=== PATIENT | male | born 1940 | race Two or more races ===

== ENCOUNTER 2022-07-18 13:04 | Inpatient (IN) | payer OTHER ==
[~2022-07-18] VITALS: Ht 152.4 cm; Wt 72.6 kg
[2022-07-18] MEDS ORDERED: ELIQUIS2.5 MG PO (13:32)
[2022-07-18] MEDS ORDERED: ALLOPURINOL300 MG PO (13:33)
[2022-07-18] MEDS ORDERED: CALCITRIOL0.25 MCG PO (13:33)
[2022-07-18] MEDS ORDERED: SPIRONOLACTONE25 MG PO (13:33)
[2022-07-18] MEDS ORDERED: METOPROLOL SUCC50 MG PO (13:33)
[2022-07-18] MEDS ORDERED: ATORVASTATIN CA20 MG PO (13:34)
[2022-07-18] MEDS ORDERED: LEVOTHYROXINE25 MC1 PO (13:34)
[2022-07-18] MEDS ORDERED: FUROSEMIDE20 MG PO (13:34)
[2022-07-18] MEDS ORDERED: DOXAZOSIN MESYLA4 MG PO (13:35)
[2022-07-18] MEDS ORDERED: HYDROCHLOROTH12.5 MG PO (13:35)
--- NOTE | 2022-07-18 13:36 | NUR ---
PTE REFIERE DOLOR ABDOMINAL ACOMPANADO DE VOMITOS Y DIARREAS DESDE HACE VARIOS DOUGLAS.
--- NOTE | 2022-07-18 18:23 | NUR ---
SE ORIENTA PTE SOBRE TX MEDICO EL CUAL REFIERE ENTENDER.SE LE EXTRAEN MUESTRAS,SE ENTREGA CONTRASTE PARA CT Y SE NOTIFICA EL MISMO.
[2022-07-19] MEDS ORDERED: AMLODIPINE BESYL5 MG (13:42)
[2022-07-19] MEDS ORDERED: WARFARIN SODIUM3 MG (13:42)
== END 2022-07-26 19:30 | disposition home or self-care (01) | DRG 683 ==
LOC: ER 13:04 → SEC-K 22:15 → SURG 07-19 04:14
PROVIDERS: ADMIT Internal Medicine; ATTEND Internal Medicine
PROC: BW21Y0Z Computerized Tomography (CT Scan) of Abdomen and Pelvis using Other Contrast, Unenhanced and Enhanced (ICD-10-PCS; 2022-07-18)
PROC: B246ZZZ Ultrasonography of Right and Left Heart (ICD-10-PCS; 2022-07-18)
PROC: BF37ZZZ Magnetic Resonance Imaging (MRI) of Pancreas (ICD-10-PCS; principal; 2022-07-20)
PROC: CD171ZZ Planar Nuclear Medicine Imaging of Gastrointestinal Tract using Technetium 99m (Tc-99m) (ICD-10-PCS; 2022-07-23)
DX: N17.8 Other acute kidney failure (principal); E87.21 Acute metabolic acidosis; Q61.3 Polycystic kidney, unspecified; I12.0 Hypertensive chronic kidney disease with stage 5 chronic kidney disease or end stage renal disease; E11.22 Type 2 diabetes mellitus with diabetic chronic kidney disease; N18.5 Chronic kidney disease, stage 5; E87.5 Hyperkalemia; E86.0 Dehydration; K44.9 Diaphragmatic hernia without obstruction or gangrene; D69.6 Thrombocytopenia, unspecified; E83.42 Hypomagnesemia; E88.09 Other disorders of plasma-protein metabolism, not elsewhere classified; R13.19 Other dysphagia

== ENCOUNTER 2022-11-08 15:56 | Inpatient (IN) | payer OTHER ==
[~2022-11-08] VITALS: Ht 172.7 cm; Wt 79.4 kg
[~2022-11-08 15:56] MED LIST: ALLOPURINOL300 MG PO; AMLODIPINE BESYL5 MG; ATORVASTATIN CA20 MG PO; CALCITRIOL0.25 MCG PO; DOXAZOSIN MESYLA4 MG PO; ELIQUIS2.5 MG PO; FUROSEMIDE20 MG PO; HYDROCHLOROTH12.5 MG PO; LEVOTHYROXINE25 MC1 PO; METOPROLOL SUCC50 MG PO; SPIRONOLACTONE25 MG PO; WARFARIN SODIUM3 MG
[2022-11-08] MEDS ORDERED: BICITRA (16:22)
== END 2022-11-13 15:59 | disposition home or self-care (01) | DRG 354 ==
LOC: ER 15:56 → ICU-2 20:27 → O/R 20:27 → SURH 20:27 → O/R 11-09 07:37 → SURH 11-09 10:28
PROVIDERS: Surgery; ADMIT Specialist; ATTEND Specialist
PROC: BW21YZZ Computerized Tomography (CT Scan) of Abdomen and Pelvis using Other Contrast (ICD-10-PCS; 2022-11-08)
PROC: B24BZZZ Ultrasonography of Heart with Aorta (ICD-10-PCS; 2022-11-09)
PROC: 0WQF0ZZ Repair Abdominal Wall, Open Approach (ICD-10-PCS; principal; 2022-11-09 09:15)
DX: K42.0 Umbilical hernia with obstruction, without gangrene (principal); I13.0 Hypertensive heart and chronic kidney disease with heart failure and stage 1 through stage 4 chronic kidney disease, or unspecified chronic kidney disease; I50.30 Unspecified diastolic (congestive) heart failure; K56.690 Other partial intestinal obstruction; N17.9 Acute kidney failure, unspecified; I48.91 Unspecified atrial fibrillation; N18.30 Chronic kidney disease, stage 3 unspecified; E87.5 Hyperkalemia; E53.8 Deficiency of other specified B group vitamins; E03.9 Hypothyroidism, unspecified; F10.20 Alcohol dependence, uncomplicated; D69.6 Thrombocytopenia, unspecified; Z20.822 Contact with and (suspected) exposure to COVID-19

== ENCOUNTER 2022-11-28 08:51 | Emergency (ER) | payer OTHER ==
[~2022-11-28] VITALS: Ht 170.2 cm; Wt 80.3 kg
[~2022-11-28 08:51] MED LIST changes: +BICITRA
== END 2022-11-28 10:22 | disposition home or self-care (01) ==
LOC: ER 08:51
DX: Z48.02 Encounter for removal of sutures (principal)

== ENCOUNTER 2024-10-15 11:23 | Inpatient (IN) | payer OTHER ==
[~2024-10-15] VITALS: Ht 170.2 cm; Wt 771.1 kg
[2024-10-15] MEDS ORDERED: LEVALBUTEROL HCL 1.25 MG/3 ML SOLUTION IH ONE (12:30)
[2024-10-15 12:56] LABS: HEMATOCRIT 31.4 % (39.0-48.0); HEMOGLOBIN 10.3 g/dL (13-16.00); MEAN CELL VOLUME 92.8 fL (80.0-100.00); MEAN CORPUSCULAR HEMOGLOBIN 30.6 pg (27.00-32.0); MEAN CORPUSCULAR HGB CONC 32.9 g/dl (32.0-36.0); PLATELET COUNT 143 K/uL (150-450); RED BLOOD COUNT 3.38 M/uL (4.00-6.00); RED CELL DISTRIBUTION WIDTH 17.3 % (11.5-14.5)
[2024-10-15 13:33] LABS: INR 1.21; PARTIAL THROMBOPLASTIN TIME 30.1 SECONDS (22.0-34.0)
[2024-10-15 13:38] LABS: ABG PH 7.371 (7.35-7.45); ABG PO2 79.5 mmHg (80-100); ABG pCO2 31.6 mmHg (35-45); BASE EXCESS -6.1 mmol/l; BICARBONATE 17.9 mmol/l (23-25); Tco2 18.9 mmol/l
[2024-10-15 13:40] LABS: PH,URINE 5.5 (5.0-8.0); URINE APPEARANCE Clear; URINE BILIRRUBIN Negative (NEGATIVE); URINE BLOOD Negative; URINE COLOR Yellow; URINE GLUCOSE Negative (NEGATIVE); URINE KETONE Negative (NEGATIVE); URINE LEUKOCYTE Negative; URINE NITRATE Negative; URINE UROBILINOGEN 0.2 E.U./dl
[2024-10-15 13:42] LABS: URINE BACTERIA 6.1 uL (0.0-1933); URINE EPITHELIAL CELLS 2.1 uL (0.0-38.8); URINE WBC 4.2 uL (0.0-23.2)
[2024-10-15 13:55] LABS: URINE CAST 0.14 uL (0.0-1.40); URINE PROTEIN 100 (NEGATIVE)
[2024-10-15 14:13] LABS: ALBUMIN 3.2 gm/dL (3.4-5.0); BILIRUBIN TOTAL 0.96 mg/dL (0.3-1.2); CALCIUM 8.8 mg/dL (8.5-10.1); GFR 14.19; GLOBULINA 3.5 G/DL (2.4-3.5); POTASSIUM 4.95 mEq/L (3.5-5.1); TOTAL PROTEIN 6.7 gm/dL (6.4-8.2)
[2024-10-15] MEDS ORDERED: FUROsemide 20 MG/2 ML VIAL ONE ×2 (14:21→18:19)
[2024-10-15 14:26] LABS: allen test SATISFACTORY; mode ROOM AIR; o2 21 %; puncture site RADIAL RIGHT
[2024-10-15] MEDS ORDERED: FUROsemide 20 MG/2 ML VIAL IV ONE (14:30)
[2024-10-15 15:09] LABS: CREATININE SERUM 4.07 mg/dL (0.70-1.30)
[2024-10-15] MEDS ORDERED: FUROsemide 20 MG/2 ML VIAL IV SCH (17:35)
[2024-10-15] MEDS ORDERED: METOPROLOL SUCCINATE 25 MG TAB.SR.24H PO SCH (17:35)
[2024-10-15] MEDS ORDERED: ENOXAPARIN SODIUM 60 MG/0.6 ML SYRINGE SUBCUTANEO SCH (17:35)
[2024-10-15] MEDS ORDERED: NITROGLYCERIN IN 5 % DEXTROSE 250 ML IV SCH (17:45)
[2024-10-15] MEDS ORDERED: IPRATROPIUM BROMIDE 0.5 MG/2.5 ML AMPUL.NEB IH SCH (17:45)
[2024-10-15] MEDS ORDERED: ACETAMINOPHEN 500 MG GEL..CAP PO PRN (17:45)
[2024-10-15] MEDS ORDERED: ENOXAPARIN SODIUM 60 MG/0.6 ML SYRINGE SUBCUTANEO ONE (18:19)
[2024-10-15 18:40] VITALS: BP 134/93; O2SAT 98
[2024-10-15 18:47] VITALS: BP 134/93
[2024-10-15 20:00] VITALS: BP 144/89; O2SAT 97
[2024-10-15] MEDS ORDERED: IPRATROPIUM BROMIDE 0.5 MG/2.5 ML AMPUL.NEB IH ONE (20:03)
[2024-10-15 21:15] VITALS: BP 142/92; O2SAT 100
[2024-10-15 21:50] VITALS: BP 141/109; O2SAT 97
[2024-10-15 23:44] VITALS: BP 122/82; O2SAT 96
[2024-10-16] VITALS (23 sets, daily range): BP systolic 109–11131; BP diastolic 9–95; O2SAT 95–100
[2024-10-16] MEDS ORDERED: LEVOTHYROXINE SODIUM 25 MCG TABLET PO SCH (06:00)
[2024-10-16] MEDS ORDERED: ATORVASTATIN CALCIUM 20 MG TABLET PO SCH (09:00)
[2024-10-16] MEDS ORDERED: CHLORHEXIDINE GLUCONATE 120 ML BOTTLE TOP ONE (09:47)
[2024-10-16] MEDS ORDERED: NITROGLYCERIN IN 5 % DEXTROSE 250 ML IV SCH (14:00)
[2024-10-16 22:32] LABS: TP PLEURAL FLUID 3.1 g/dl
[2024-10-16 23:29] LABS: PLEURAL FLUID APPEARANCE CRYSTAL CLEAR; PLEURAL FLUID COLOR YELLOW
[2024-10-17] VITALS (13 sets, daily range): BP systolic 108–131; BP diastolic 70–86; O2SAT 98–100
[2024-10-17] MEDS ORDERED: ISOSORBIDE MONONITRATE 30 MG TABLET PO SCH (09:00)
[2024-10-18 01:30] VITALS: O2SAT 91
[2024-10-18 03:12] VITALS: BP 135/89; O2SAT 98
[2024-10-18 19:12] VITALS: BP 128/84
[2024-10-19 02:11] VITALS: BP 137/80; O2SAT 97
[2024-10-19 09:17] VITALS: BP 124/84
[2024-10-19 17:27] VITALS: BP 130/83
[2024-10-19 19:11] VITALS: O2SAT 98
[2024-10-20 01:04] VITALS: BP 121/82; O2SAT 99
[2024-10-20 06:24] LABS: HEMATOCRIT 28.6 % (39.0-48.0); HEMOGLOBIN 9.5 g/dL (13-16.00); MEAN CELL VOLUME 91.6 fL (80.0-100.00); MEAN CORPUSCULAR HEMOGLOBIN 30.5 pg (27.00-32.0); MEAN CORPUSCULAR HGB CONC 33.3 g/dl (32.0-36.0); PLATELET COUNT 149 K/uL (150-450); RED BLOOD COUNT 3.12 M/uL (4.00-6.00); RED CELL DISTRIBUTION WIDTH 16.7 % (11.5-14.5)
[2024-10-20 07:34] LABS: ALBUMIN 2.5 gm/dL (3.4-5.0); BILIRUBIN TOTAL 0.83 mg/dL (0.3-1.2); CALCIUM 8.6 mg/dL (8.5-10.1); GFR 14.07; GLOBULINA 3.1 G/DL (2.4-3.5); PHOSPHOROUS 3.7 mg/dL (2.5-4.9); POTASSIUM 4.57 mEq/L (3.5-5.1); TOTAL PROTEIN 5.6 gm/dL (6.4-8.2)
[2024-10-20 08:46] LABS: CREATININE SERUM 4.1 mg/dL (0.70-1.30)
[2024-10-20 09:18] VITALS: BP 153/85
== END 2024-10-20 13:33 | disposition home or self-care (01) | DRG 291 ==
LOC: ER 11:23 → ICU 18:01 → ICU-2 18:01 → ICU 21:58 → MEDJ 10-17 14:05
PROVIDERS: General Practice; Internal Medicine; Radiology Vascular & Interventional Radiology; ADMIT Student in an Organized Health Care Education/Training Program; ATTEND Student in an Organized Health Care Education/Training Program
PROC: BW24ZZZ Computerized Tomography (CT Scan) of Chest and Abdomen (ICD-10-PCS; 2024-10-15)
PROC: B24BZZZ Ultrasonography of Heart with Aorta (ICD-10-PCS; 2024-10-15)
PROC: 0W9B3ZZ Drainage of Left Pleural Cavity, Percutaneous Approach (ICD-10-PCS; principal; 2024-10-16)
PROC: 4A12X4Z Monitoring of Cardiac Electrical Activity, External Approach (ICD-10-PCS; 2024-10-17)
DX: I13.0 Hypertensive heart and chronic kidney disease with heart failure and stage 1 through stage 4 chronic kidney disease, or unspecified chronic kidney disease (principal); I50.23 Acute on chronic systolic (congestive) heart failure; N17.9 Acute kidney failure, unspecified; E78.5 Hyperlipidemia, unspecified; E03.9 Hypothyroidism, unspecified; N18.30 Chronic kidney disease, stage 3 unspecified; I48.91 Unspecified atrial fibrillation; I34.0 Nonrheumatic mitral (valve) insufficiency; I35.1 Nonrheumatic aortic (valve) insufficiency

== ENCOUNTER 2025-04-13 09:27 | Inpatient (IN) | payer OTHER ==
[~2025-04-13] VITALS: Ht 152.4 cm; Wt 72.6 kg
--- NOTE | 2025-04-13 09:33 | NUR ---
PACIENTE ALERTA Y ORIENTADO X 3. REFIERE DESDE YOVANI DIFICULTAD RESPIRASTORIA AL CAMINAR Y TOS.
[2025-04-13] MEDS ORDERED: LEVALBUTEROL HCL 0.63 MG/3 ML SOLUTION IH SCH (11:00)
[2025-04-13] MEDS ORDERED: IPRATROPIUM BROMIDE 0.5 MG/2.5 ML AMPUL.NEB IH SCH (11:00)
--- NOTE | 2025-04-13 13:12 | NUR ---
SE ORIENTA A PACIENTE SOBRE TRATAMIENTO MEDICO, REFIERE ENTENDER. SE COLECTAN MUESTRAS DE LABORATORIO BAJO MEDIDAS ASEPTICAS. SE CANALIZA Y SE ADMINISTRA MEDICAMENTO EDELMIRA ORDEN MEDICA. SE REALIZA EKG Y SE PRESENTA A DR HALE. PACIENTE CONECTADO A MONITOR CARDIACO Y OXIMETRIA DE [place].
[2025-04-13 13:13] LABS: BASO % 0.5 % (0.1-1.2); EOS # 0.00 (0.04-0.54); EOS % 0.0 % (0.7-7.0); LYMPH # 0.47 (1.18-3.74); LYMPH % 7.4 % (19.3-53.1); MEAN PLATELET VOLUME 11.60 fl (9.4-12.4); MONO # 0.58 (0.24-0.82); MONO % 9.1 % (4.7-12.5); NEUT # 5.30 (1.56-6.13); NEUT % 82.8 % (34.0-71.1); RED CELL DISTRIBUTION WIDTH 16.3 % (11.6-14.4)
[2025-04-13 13:40] LABS: INR 1.48
[2025-04-13 13:53] LABS: ALT/SGPT 44.0 U/L (12-78); AST/SGOT 46.0 U/L (15-37); BILIRUBIN TOTAL 2.45 mg/dL (0.3-1.2); GFR 11.06; GLOBULINA 3.4 G/DL (2.4-3.5); GLUCOSE FASTING 119.0 mg/dL (65-100)
[2025-04-13 14:01] LABS: BUN CREA RATIO 16.0 (7.0-25.0); OSMOLALITY SERUM 299.0 MOSM/KG (275-295)
[2025-04-13 14:02] LABS: URINE APPEARANCE Cloudy; URINE BILIRRUBIN Negative (NEGATIVE); URINE BLOOD Trace; URINE COLOR Yellow; URINE GLUCOSE Negative (NEGATIVE); URINE KETONE Negative (NEGATIVE); URINE LEUKOCYTE Large; URINE NITRATE Negative; URINE UROBILINOGEN 0.2 E.U./dl
[2025-04-13 14:03] LABS: CREATININE SERUM 5.04 mg/dL (0.70-1.30)
[2025-04-13 14:05] LABS: URINE BACTERIA 841.2 uL (0.0-1933); URINE CAST 4.69 uL (0.0-1.40); URINE EPITHELIAL CELLS 1.6 uL (0.0-38.8); URINE RBC 14.8 uL (0.0-20.8); URINE WBC 525.0 uL (0.0-23.2)
[2025-04-13] MEDS ORDERED: CITRIC ACID/SODIUM CITRATE 30 ML BLIST.PACK PO SCH (14:39)
[2025-04-13] MEDS ORDERED: SODIUM POLYSTYRENE SULFONATE 30G/8 TSP PO ONE (14:45)
[2025-04-13 14:53] LABS: TYPE CELLS SQUAMOUS; URINE PROTEIN 100 (NEGATIVE)
[2025-04-13] MEDS ORDERED: NITROGLYCERIN IN 5 % DEXTROSE 250 ML IV SCH ×2 (16:30)
[2025-04-13] MEDS ORDERED: ACETAMINOPHEN 325 MG TABLET PO PRN (16:30)
[2025-04-13] MEDS ORDERED: PANTOPRAZOLE SODIUM 40 MG in 0.9 % SODIUM CHLORIDE 8 ML IV PUSH SCH (16:30)
[2025-04-13] MEDS ORDERED: ONDANSETRON HCL 4 MG in 0.9 % SODIUM CHLORIDE 50 ML IV PRN (16:30)
[2025-04-13] MEDS ORDERED: ENOXAPARIN SODIUM 30 MG/0.3 ML SYRINGE SUBCUTANEO SCH (16:31)
[2025-04-13] MEDS ORDERED: ATORVASTATIN CALCIUM 20 MG TABLET PO SCH (16:33)
[2025-04-13] MEDS ORDERED: METOPROLOL TARTRATE 25 MG TABLET PO SCH (16:38)
[2025-04-13 23:00] VITALS: BP 137/89; O2SAT 100
[2025-04-13 23:50] LABS: T4 FREE 1.39 NG/ML (0.76-1.46); TSH 3.41 uIU/mL (0.358-3.74)
[2025-04-14] VITALS (15 sets, daily range): BP systolic 106–134; BP diastolic 64–97; O2SAT 95–100
[2025-04-14] MEDS ORDERED: LEVOTHYROXINE SODIUM 25 MCG TABLET PO SCH (06:00)
[2025-04-14 06:18] LABS: INR 1.52
[2025-04-14 06:41] LABS: ALT/SGPT 48.0 U/L (12-78); AST/SGOT 43.0 U/L (15-37); BILIRUBIN TOTAL 2.11 mg/dL (0.3-1.2); GLOBULINA 2.9 G/DL (2.4-3.5); GLUCOSE FASTING 107.0 mg/dL (65-100)
[2025-04-14 06:49] LABS: BUN CREA RATIO 17.0 (7.0-25.0); CKMB 6.2 NG/ML (0.5-3.6); GFR 10.82; OSMOLALITY SERUM 303.0 MOSM/KG (275-295)
[2025-04-14 06:50] LABS: CREATININE SERUM 5.14 mg/dL (0.70-1.30)
[2025-04-14] MEDS ORDERED: AMINO ACIDS/PROTEIN HYDROLYS 30 ML BLIST.PACK PO SCH (17:27)
[2025-04-15] VITALS (16 sets, daily range): BP systolic 100–176; BP diastolic 59–90; O2SAT 100
[2025-04-15 09:41] LABS: URINE PROT QUANT 24HR 29.2 MG/DL
[2025-04-15 09:42] LABS: URINE PROT QUANT 24 HR 569.4 MG/24HR (42-225)
[2025-04-15 09:52] LABS: CREATINE CLEARANCE 11.5 ML/MIN (97-137); CREATININE SERUM 5.14 mg/dL (0.8-1.3)
[2025-04-15] MEDS ORDERED: HEPARIN SODIUM,PORCINE 1,000 UNITS/ML VIAL IV SCH (21:00)
[2025-04-15] MEDS ORDERED: HEPARIN SODIUM,PORCINE 1,000 UNITS/ML VIAL SPEPROC ONE (21:00)
[2025-04-15] MEDS ORDERED: CEFAZOLIN SODIUM 1,000 MG VIAL IV ONE (21:30)
[2025-04-15] MEDS ORDERED: BUPIVACAINE HCL 30 ML VIAL IJ ONE (21:30)
[2025-04-15] MEDS ORDERED: HEPARIN SODIUM,PORCINE 500 UNITS/5 ML VIAL IV ONE (21:45)
[2025-04-16] VITALS (8 sets, daily range): BP systolic 104–124; BP diastolic 67–82; O2SAT 98–100
[2025-04-16 06:46] LABS: BASO % 0.7 % (0.1-1.2); EOS # 0.23 (0.04-0.54); EOS % 4.0 % (0.7-7.0); LYMPH # 0.55 (1.18-3.74); LYMPH % 9.5 % (19.3-53.1); MEAN PLATELET VOLUME 12.40 fl (9.4-12.4); MONO # 0.59 (0.24-0.82); MONO % 10.1 % (4.7-12.5); NEUT # 4.39 (1.56-6.13); NEUT % 75.4 % (34.0-71.1); RED CELL DISTRIBUTION WIDTH 15.9 % (11.6-14.4)
[2025-04-16 07:13] LABS: GFR 10.44; GLUCOSE FASTING 86.0 mg/dL (65-100)
[2025-04-16 07:26] LABS: BUN CREA RATIO 20.0 (7.0-25.0); OSMOLALITY SERUM 312.0 MOSM/KG (275-295)
[2025-04-16 07:27] LABS: CREATININE SERUM 5.3 mg/dL (0.70-1.30)
[2025-04-17] VITALS (9 sets, daily range): BP systolic 108–126; BP diastolic 68–78; O2SAT 94–100
[2025-04-17 06:18] LABS: BASO % 0.8 % (0.1-1.2); EOS # 0.15 (0.04-0.54); EOS % 2.8 % (0.7-7.0); LYMPH # 0.42 (1.18-3.74); LYMPH % 7.9 % (19.3-53.1); MEAN PLATELET VOLUME 12.20 fl (9.4-12.4); MONO # 0.67 (0.24-0.82); NEUT # 4.02 (1.56-6.13); NEUT % 75.5 % (34.0-71.1); RED CELL DISTRIBUTION WIDTH 16.5 % (11.6-14.4)
[2025-04-17 06:38] LABS: MONO % 12.6 % (4.7-12.5)
[2025-04-17 06:49] LABS: BUN CREA RATIO 19.0 (7.0-25.0); CREATININE SERUM 3.86 mg/dL (0.70-1.30); GFR 15.05; GLUCOSE FASTING 96.0 mg/dL (65-100); OSMOLALITY SERUM 303.0 MOSM/KG (275-295)
[2025-04-17] MEDS ORDERED: EPOETIN ALFA-EPBX 10,000 UNIT/ML VIAL (Retacrit) SUBCUTANEO SCH (09:00)
[2025-04-17] MEDS ORDERED: POLYETHYLENE GLYCOL 3350 17 GM BLIST.PACK PO SCH (17:00)
[2025-04-18] VITALS (8 sets, daily range): BP systolic 106–136; BP diastolic 70–79; O2SAT 90–100
[2025-04-18 07:47] LABS: BUN CREA RATIO 15.0 (7.0-25.0); CREATININE SERUM 3.31 mg/dL (0.70-1.30); GFR 17.97; GLUCOSE FASTING 94.0 mg/dL (65-100); OSMOLALITY SERUM 290.0 MOSM/KG (275-295)
[2025-04-19] VITALS (8 sets, daily range): BP systolic 103–141; BP diastolic 71–85; O2SAT 97–100
[2025-04-19 13:53] LABS: BASO % 1.0 % (0.1-1.2); EOS # 0.14 (0.04-0.54); EOS % 2.4 % (0.7-7.0); LYMPH # 0.61 (1.18-3.74); LYMPH % 10.5 % (19.3-53.1); MEAN PLATELET VOLUME 12.30 fl (9.4-12.4); MONO # 0.90 (0.24-0.82); NEUT # 4.10 (1.56-6.13); NEUT % 70.4 % (34.0-71.1); RED CELL DISTRIBUTION WIDTH 17.0 % (11.6-14.4)
[2025-04-19 13:57] LABS: MONO % 15.4 % (4.7-12.5)
[2025-04-20] VITALS (8 sets, daily range): BP systolic 128–129; BP diastolic 72–80; O2SAT 95–99
[2025-04-20 06:12] LABS: BASO % 0.8 % (0.1-1.2); EOS # 0.13 (0.04-0.54); EOS % 2.1 % (0.7-7.0); LYMPH # 0.57 (1.18-3.74); LYMPH % 9.4 % (19.3-53.1); MEAN PLATELET VOLUME 12.30 fl (9.4-12.4); MONO # 0.77 (0.24-0.82); NEUT # 4.51 (1.56-6.13); NEUT % 74.5 % (34.0-71.1); RED CELL DISTRIBUTION WIDTH 16.6 % (11.6-14.4)
[2025-04-20 06:27] LABS: MONO % 12.7 % (4.7-12.5)
[2025-04-20 06:50] LABS: GFR 14.24; GLUCOSE FASTING 103.0 mg/dL (65-100)
[2025-04-20 07:26] LABS: BUN CREA RATIO 24.0 (7.0-25.0); CREATININE SERUM 4.05 mg/dL (0.70-1.30); OSMOLALITY SERUM 300.0 MOSM/KG (275-295)
[2025-04-21] VITALS (9 sets, daily range): BP systolic 115–150; BP diastolic 76–85; O2SAT 89–100
[2025-04-21] MEDS ORDERED: KETOROLAC TROMETHAMINE 30 MG VIAL IV STA (08:02)
[2025-04-21] MEDS ORDERED: KETOROLAC TROMETHAMINE 30 MG VIAL IV PRN (08:15)
[2025-04-21 10:08] LABS: hav igm Negative (Negative); hep b c Negative (Negative); hep b s ag Negative (Negative)
[2025-04-22] VITALS (9 sets, daily range): BP systolic 130–138; BP diastolic 85–95; O2SAT 89–100
[2025-04-23 00:17] VITALS: O2SAT 98
[2025-04-23 02:00] VITALS: BP 109/83; O2SAT 98
[2025-04-23 05:53] VITALS: O2SAT 95
[2025-04-23 09:06] VITALS: BP 120/86; O2SAT 99
== END 2025-04-23 11:02 | disposition home or self-care (01) | DRG 673 ==
LOC: ER 09:28 → ICU-2 17:18 → ICU 21:40 → ICU-2 21:50 → MEDJ 04-16 19:01
PROVIDERS: General Practice; Radiology Vascular & Interventional Radiology; Specialist/Technologist, Other Nephrology; Student in an Organized Health Care Education/Training Program; ADMIT Internal Medicine; ATTEND Internal Medicine
PROC: B246ZZZ Ultrasonography of Right and Left Heart (ICD-10-PCS; 2025-04-13)
PROC: BT43ZZZ Ultrasonography of Bilateral Kidneys (ICD-10-PCS; 2025-04-14)
PROC: 05HM33Z Insertion of Infusion Device into Right Internal Jugular Vein, Percutaneous Approach (ICD-10-PCS; 2025-04-15)
PROC: B543ZZA Ultrasonography of Right Jugular Veins, Guidance (ICD-10-PCS; 2025-04-15)
PROC: B513YZA Fluoroscopy of Right Jugular Veins using Other Contrast, Guidance (ICD-10-PCS; 2025-04-15)
PROC: 0JH60XZ Insertion of Tunneled Vascular Access Device into Chest Subcutaneous Tissue and Fascia, Open Approach (ICD-10-PCS; principal; 2025-04-15 19:00)
PROC: 4A12X4Z Monitoring of Cardiac Electrical Activity, External Approach (ICD-10-PCS; 2025-04-16)
PROC: 8E0ZXY6 Isolation (ICD-10-PCS; 2025-04-16)
PROC: 5A1D70Z Performance of Urinary Filtration, Intermittent, Less than 6 Hours Per Day (ICD-10-PCS; 2025-04-16)
PROC: 5A1D70Z Performance of Urinary Filtration, Intermittent, Less than 6 Hours Per Day (ICD-10-PCS; 2025-04-20)
PROC: 5A1D70Z Performance of Urinary Filtration, Intermittent, Less than 6 Hours Per Day (ICD-10-PCS; 2025-04-22)
DX: N17.9 Acute kidney failure, unspecified (principal); I50.23 Acute on chronic systolic (congestive) heart failure; I13.2 Hypertensive heart and chronic kidney disease with heart failure and with stage 5 chronic kidney disease, or end stage renal disease; I48.20 Chronic atrial fibrillation, unspecified; E87.20 Acidosis, unspecified; J90 Pleural effusion, not elsewhere classified; Q61.3 Polycystic kidney, unspecified; E87.5 Hyperkalemia; E87.70 Fluid overload, unspecified; D63.1 Anemia in chronic kidney disease; M25.562 Pain in left knee; I25.10 Atherosclerotic heart disease of native coronary artery without angina pectoris; E11.22 Type 2 diabetes mellitus with diabetic chronic kidney disease; N18.5 Chronic kidney disease, stage 5; E78.5 Hyperlipidemia, unspecified; E03.9 Hypothyroidism, unspecified; Z99.2 Dependence on renal dialysis